=== PATIENT | male | born 1985 | race Caucasian/White ===

== ENCOUNTER → 2017-09-08 | Outpatient (CLI) | payer OTHER ==
[~2017-09-08] MED LIST: IBUP600T44 PO
[2017-09-08 16:48] LABS: BASO % 0.2 %; BASO ABS # 0.01 K/uL (0-0.2); EOS % 2.6 %; EOS ABS # 0.16 K/uL (0-0.5); HEMATOCRIT 42.3 % (42-52); HEMOGLOBIN 15.2 g/dL (14.0-18.0); IG# 0.01 K/uL (0.00-0.02); LYMPH % 21.5 %; LYMPH ABS # 1.32 K/uL (1.2-3.4); MEAN CORPUSCULAR HEMOGLOBIN 32.3 pg (25-34); MONO % 10.1 %; MONO ABS # 0.62 K/uL (0.11-0.59); NEUT % 65.4 %; NEUT ABS # 4.03 K/uL (1.4-6.5); PLATELET COUNT 191 K/uL (130-400); RED CELL DISTRIBUTION WIDTH CV 12.1 % (11.5-14.5); RED CELL DISTRIBUTION WIDTH SD 39.7 fL (36.4-46.3); WHITE BLOOD COUNT 6.15 K/uL (4.8-10.8)
[2017-09-08 16:49] LABS: MEAN CORPUSCULAR HGB CONC 35.9 g/dl (32-36)
== END | disposition home or self-care (01) ==
LOC: C.LAB1850 16:12
PROVIDERS: ATTEND Internal Medicine
DX: R50.9 Fever, unspecified (principal)